=== PATIENT | male | born 1955 | race Caucasian/White ===

== ENCOUNTER → 2017-02-05 | Outpatient (CLI) | payer OTHER | LOC: LAB.O 13:47 | PROVIDERS: ATTEND Urology | DX: R97.20 Elevated prostate specific antigen [PSA] (principal) ==

== ENCOUNTER → 2017-08-11 | Outpatient (CLI) | payer BC | END | disposition home or self-care (01) | LOC: GMAB 11:10 | PROVIDERS: ATTEND Family Medicine | DX: Z00.01 Encounter for general adult medical examination with abnormal findings (principal) ==

== ENCOUNTER → 2017-10-15 | Outpatient (CLI) | payer BC | END | disposition home or self-care (01) | LOC: GMAB 17:00 | PROVIDERS: ATTEND Family Medicine | DX: R97.20 Elevated prostate specific antigen [PSA] (principal) ==

== ENCOUNTER → 2018-02-17 | Outpatient (CLI) | payer BC | LOC: GMAB 11:35 | PROVIDERS: ATTEND Family Medicine | DX: Z01.818 Encounter for other preprocedural examination (principal) ==

== ENCOUNTER → 2018-08-12 | Outpatient (CLI) | payer BC | LOC: GMAE 10:43 | PROVIDERS: ATTEND Family Medicine | DX: Z00.01 Encounter for general adult medical examination with abnormal findings (principal) ==

== ENCOUNTER → 2019-03-31 | Outpatient (CLI) | payer BC ==
--- NOTE | 2019-03-31 17:37 | US ---
EXAM DESCRIPTION: Venous,Lower Extremity LT: ULTRASOUND. CLINICAL HISTORY: PN IN LEFT LEG COMPARISON: None Available. TECHNIQUE: Ansari-scale and doppler sonographic evaluation of the deep venous system of the left lower extremity. FINDINGS: Doppler evaluation shows normal color flow and normal phasicity and augmentation of the left common femoral vein, deep femoral vein, femoral vein, popliteal vein, greater saphenous vein, peroneal, and posterior tibial vein. The left lower extremity deep veins were completely compressible; normal occlusion with transducer pressure. Ansari-scale survey showed no echogenic thrombus within these veins. IMPRESSION: 1. Duplex ultrasound evaluation of the left lower extremity deep venous system showing no evidence of thrombosis. Electronically signed by: Christopher Rios MD 03/31/2019 5:35 PM CDT
== END ==
LOC: US 16:12
PROVIDERS: ATTEND Nurse Practitioner Family
DX: M79.605 Pain in left leg (principal)

== ENCOUNTER → 2019-08-17 | Outpatient (CLI) | payer BC | LOC: GMAE 10:38 | PROVIDERS: ATTEND Family Medicine | DX: Z00.00 Encounter for general adult medical examination without abnormal findings (principal) ==

== ENCOUNTER → 2020-08-24 | Outpatient (CLI) | payer OTHER ==
--- NOTE | 2020-08-25 06:54 | MRI ---
Study: MRI of the Left Shoulder. Indication: rotator cuff tear or rupture of left shoulder Technique: Multiplanar, multi sequence MRI of the left shoulder was obtained without intravenous contrast. Comparison: None. Findings: Severe hypertrophic AC joint osteoarthritis. Type II acromion. Irregular effectively full-thickness, fullwidth supraspinatus tendon tearing with high-grade articular tearing anterior two thirds infraspinatus tendon insertion. Torn articular fibers retracted to the level of the mid acromion. Subscapularis tendinosis with high-grade articular, effectively full-thickness tearing superior two thirds tendon insertion. Mild atrophy and grade 1 fatty infiltration rotator cuff musculature. Long head biceps tendinosis and longitudinal split tearing without rupture. Circumferential labral truncation/degeneration. Mild glenohumeral joint osteoarthritis with a tiny joint effusion. No acute fracture. Impression: Irregular full-thickness, fullwidth supraspinatus tendon tearing with high-grade articular tearing anterior infraspinatus tendon. High-grade articular effectively full-thickness tearing superior two thirds subscapularis tendon insertion. Mild atrophy and grade 1 fatty infiltration rotator cuff musculature. Long head biceps tendinosis and longitudinal split tearing. Circumferential labral truncation and degeneration. Mild glenohumeral joint osteoarthritis with a tiny joint effusion. Severe AC joint osteoarthritis. Electronically signed by: Vargas Whitley MD 08/25/2020 6:52 AM [employer]
== END ==
LOC: MRI 10:06
PROVIDERS: ATTEND Orthopaedic Surgery
DX: M75.102 Unspecified rotator cuff tear or rupture of left shoulder, not specified as traumatic (principal); M62.512 Muscle wasting and atrophy, not elsewhere classified, left shoulder; M75.22 Bicipital tendinitis, left shoulder; S43.432A Superior glenoid labrum lesion of left shoulder, initial encounter; M19.012 Primary osteoarthritis, left shoulder; M25.412 Effusion, left shoulder

== ENCOUNTER → 2020-09-22 | Outpatient (CLI) | payer OTHER | LOC: LAB.O 08:21 | PROVIDERS: ATTEND Orthopaedic Surgery | DX: Z01.818 Encounter for other preprocedural examination (principal) ==

== ENCOUNTER → 2020-10-23 | Outpatient (CLI) | payer MEDICARE, OTHER | LOC: LAB.O 10:26 | PROVIDERS: ATTEND Orthopaedic Surgery | DX: R05 Cough (principal) ==

== ENCOUNTER 2020-10-24 05:38 | Day surgery (SDC) | payer MEDICARE ==
[2020-10-24] MEDS ORDERED: LACTATED RINGERS 0 ML ONE (06:26)
[2020-10-24] MEDS ORDERED: SODIUM CHL 0.9% 100ML MINI-BAG 0 ML IVPB ONE (06:26)
[2020-10-24] MEDS ORDERED: ceFAZolin SODIUM 1 GM VIAL ONE (06:26)
--- NOTE | 2020-10-24 06:54 | RAD ---
EXAM: XR Chest, 2 Views CLINICAL HISTORY: preop TECHNIQUE: Frontal and lateral views of the chest. COMPARISON: No relevant prior studies available. FINDINGS: Lungs: Predominantly peripheral groundglass infiltrates present right greater than left. Pleural space: No pleural effusion. No pneumothorax. Heart: No abnormality noted. No cardiomegaly. Mediastinum: No abnormality noted. Bones/joints: No abnormality noted. IMPRESSION: Multifocal groundglass infiltrates with imaging features concerning for covid pneumonia. Electronically signed by: Elidia Coburn MD 10/24/2020 6:52 AM [facility] [[email or web address]]
== END 2020-10-24 07:40 | disposition home or self-care (01) ==
LOC: AMB 05:38
PROVIDERS: ATTEND Orthopaedic Surgery
DX: H25.812 Combined forms of age-related cataract, left eye (principal); Z53.8 Procedure and treatment not carried out for other reasons; U07.1 COVID-19; J12.82 Pneumonia due to coronavirus disease 2019
CPT/HCPCS: 71046; 80307; J0690